=== PATIENT | female | born 1960 | race Two or more races ===

== ENCOUNTER 2018-07-18 11:12 | Outpatient (CLI) | payer OTHER | END 2018-07-18 11:22 | disposition home or self-care (01) | LOC: NUCLEAR 11:12 | DX: M80.00XA Age-related osteoporosis with current pathological fracture, unspecified site, initial encounter for fracture (principal) ==

== ENCOUNTER 2018-07-21 08:14 | Outpatient (CLI) | payer OTHER | END 2018-07-21 08:26 | disposition home or self-care (01) | LOC: NUCLEAR 08:14 | DX: R60.0 Localized edema (principal) ==

== ENCOUNTER 2018-07-21 08:35 | Outpatient (CLI) | payer OTHER | END 2018-07-21 17:00 | disposition home or self-care (01) | LOC: SONOGRAMA 08:35 → MAMO-SONO 08:45 → SONOGRAMA 17:00 | DX: R22.1 Localized swelling, mass and lump, neck (principal) ==

== ENCOUNTER 2021-01-31 14:05 | Outpatient (CLI) | payer OTHER | END 2021-01-31 14:12 | disposition home or self-care (01) | LOC: NUCLEAR 14:05 | PROVIDERS: ATTEND Family Medicine | DX: M81.0 Age-related osteoporosis without current pathological fracture (principal) ==

== ENCOUNTER 2021-02-06 12:51 | Outpatient (CLI) | payer OTHER | END 2021-02-06 12:52 | disposition home or self-care (01) | LOC: RAD 12:51 | PROVIDERS: ATTEND Orthopaedic Surgery Sports Medicine | DX: M17.0 Bilateral primary osteoarthritis of knee (principal) ==

== ENCOUNTER 2023-06-06 14:26 | Outpatient (CLI) | payer OTHER | END 2023-06-06 14:38 | disposition home or self-care (01) | LOC: RAD 14:26 | PROVIDERS: ATTEND Orthopaedic Surgery Sports Medicine | DX: M76.51 Patellar tendinitis, right knee (principal); M25.461 Effusion, right knee ==

== ENCOUNTER → 2025-01-12 09:20 | Outpatient (CLI) | payer OTHER | END | disposition home or self-care (01) | LOC: NUCLEAR 09:20 | PROVIDERS: ATTEND Family Medicine | DX: M81.0 Age-related osteoporosis without current pathological fracture (principal) ==

== ENCOUNTER 2025-02-16 13:45 | Outpatient (CLI) | payer OTHER | END 2025-02-16 13:53 | disposition home or self-care (01) | LOC: RAD 13:45 | PROVIDERS: ATTEND Orthopaedic Surgery Sports Medicine | DX: S42.254A Nondisplaced fracture of greater tuberosity of right humerus, initial encounter for closed fracture (principal) ==

== ENCOUNTER 2025-06-07 12:57 | Outpatient (CLI) | payer OTHER | END 2025-06-07 12:59 | disposition home or self-care (01) | LOC: RAD 12:57 | PROVIDERS: ATTEND Physical Medicine & Rehabilitation | DX: M19.072 Primary osteoarthritis, left ankle and foot (principal) ==